=== PATIENT | female | born 1965 | race Two or more races ===

== ENCOUNTER → 2022-07-06 | Outpatient (CLI) | payer OTHER ==
[2022-07-06 08:07] LABS: Basophils # (auto) 0 10 ^3/uL (0-0.2); Eosinophils # (auto) 0.2 10 ^3/uL (0-0.8); Eosinophils % (auto) 3.8 % (0.0-7.0); Lymphocytes # (auto) 2.2 10 ^3/uL (0.4-5.4); Mean Corpuscular Volume 79.3 fL (80.0-100.0); Monocytes # (auto) 0.5 10 ^3/uL (0-1.3); Neutrophils % (auto) 53.4 % (37.0-80.0)
[2022-07-06 08:09] LABS: Basophils % (auto) 0.4 % (0.0-2.0); Hematocrit 40.3 % (36.0-46.0); Hemoglobin 13.4 g/dL (12.2-16.2); Lymphocytes % (auto) 34.8 % (10.0-50.0); Mean Corpuscular Hemoglobin 26.5 pg (28.0-32.0); Mean Corpuscular Hgb Conc. 33.4 g/dL (32.0-36.0); Monocytes % (auto) 7.6 % (0.0-12.0); Neutrophils # (auto) 3.4 10 ^3/uL (1.6-8.6); Nucleated Red Blood Cells % 0.2 %; Red Blood Cells 5.08 10^6/uL (4.0-5.20); Red Cell Distribution Width 15.7 % (11.8-14.3); White Blood Cell 6.3 10^3/uL (4.4-10.8)
[2022-07-06 08:22] LABS: Urine Bacteria NONE SEEN /hpf (None Seen); Urine Blood 1+ /uL (Negative); Urine Specific Gravity 1.004 (1.001-1.035); Urine WBC 1 /hpf (0 - 5)
[2022-07-06 08:39] LABS: Albumin 3.2 g/dL (3.4-5.0); Calcium 9.3 mg/dL (8.5-10.1); Potassium 3.8 mmol/L (3.5-5.1)
[2022-07-06 08:43] LABS: BUN/Creatinine Ratio 23.5 (10.0-20.0); Bilirubin, Total 0.5 mg/dL (0.2-1.0); Total Protein 8.2 g/dL (6.4-8.2)
== END | disposition home or self-care (01) ==
LOC: LAB 07:52
PROVIDERS: ATTEND Student in an Organized Health Care Education/Training Program
DX: I10 Essential (primary) hypertension (principal); E55.9 Vitamin D deficiency, unspecified; R73.9 Hyperglycemia, unspecified
CPT/HCPCS: 36415; 80053; 80061; 81001; 82306; 83036; 84443; 85025

== ENCOUNTER → 2024-02-23 | Outpatient (CLI) | payer OTHER ==
[2024-02-23 07:59] LABS: Urine Bacteria None Seen /hpf (None Seen)
[2024-02-23 08:12] LABS: Basophils # (auto) 0 10 ^3/uL (0-0.2); Basophils % (auto) 0.5 % (0.0-2.0); Eosinophils # (auto) 0.2 10 ^3/uL (0-0.8); Eosinophils % (auto) 3.4 % (0.0-7.0); Hematocrit 40.5 % (36.0-46.0); Hemoglobin 13.2 g/dL (12.2-16.2); Lymphocytes # (auto) 2.2 10 ^3/uL (0.4-5.4); Lymphocytes % (auto) 36.4 % (10.0-50.0); Mean Corpuscular Hemoglobin 26.2 pg (28.0-32.0); Mean Corpuscular Hgb Conc. 32.6 g/dL (32.0-36.0); Mean Corpuscular Volume 80.6 fL (80.0-100.0); Monocytes # (auto) 0.5 10 ^3/uL (0-1.3); Neutrophils # (auto) 3.1 10 ^3/uL (1.6-8.6); Neutrophils % (auto) 51.7 % (37.0-80.0); Nucleated Red Blood Cells % 0.1 %; Platelet Count (auto) 279 10^3/uL (140-450); Red Blood Cells 5.02 10^6/uL (4.0-5.20); Red Cell Distribution Width 15.1 % (11.8-14.3)
[2024-02-23 08:26] LABS: Urine Blood 1+ /uL (Negative); Urine Clarity Clear (Clear); Urine Color Colorless (Yellow); Urine Protein, UAD Negative (Negative); Urine Specific Gravity 1.003 (1.001-1.035); Urine Urobilinogen Normal (Negative); Urine WBC 1 /hpf (0 - 5); Urine pH 5.5 (5.0-9.0)
[2024-02-23 08:47] LABS: Alanine Aminotransferase 11 U/L (7-40); Albumin 4.4 g/dL (3.2-4.8); Anion Gap 9 (5-15); Aspartate Aminotransferase 15 U/L (13-40); BUN/Creatinine Ratio 18.1 (10.0-20.0); Blood Urea Nitrogen 13 mg/dL (9-23); Calcium 9.7 mg/dL (8.7-10.4); Carbon Dioxide 25 mmol/L (20-31); Cholesterol 146 mg/dL (< 200); Glucose 100 mg/dL (74-106); HDL Cholesterol 46 mg/dL (40-59); LDL Cholesterol 94 mg/dL (< 100); Potassium 3.7 mmol/L (3.5-5.1); Sodium 141 mmol/L (136-145); Triglycerides 62 mg/dL (< 150)
[2024-02-23 08:48] LABS: Bilirubin, Total 0.7 mg/dL (0.2-1.0); Total Protein 7.8 g/dL (5.7-8.2)
[2024-02-23 08:56] LABS: Alkaline Phosphatase 120 U/L (46-116); Chloride 107 mmol/L (98-107)
== END | disposition home or self-care (01) ==
LOC: LAB 07:47
PROVIDERS: ATTEND Student in an Organized Health Care Education/Training Program
DX: R73.9 Hyperglycemia, unspecified (principal); R03.0 Elevated blood-pressure reading, without diagnosis of hypertension
CPT/HCPCS: 36415; 80053; 80061; 81001; 83036; 84443; 85025

== ENCOUNTER 2024-08-29 07:42 | Outpatient (CLI) | payer OTHER ==
[2024-08-29 07:58] LABS: Urine Bacteria None Seen /hpf (None Seen)
[2024-08-29 08:09] LABS: Basophils # (auto) 0 10 ^3/uL (0-0.2); Basophils % (auto) 0.3 % (0.0-2.0); Eosinophils # (auto) 0.2 10 ^3/uL (0-0.8); Eosinophils % (auto) 3.6 % (0.0-7.0); Hematocrit 41.1 % (36.0-46.0); Hemoglobin 13.5 g/dL (12.2-16.2); Lymphocytes # (auto) 2.1 10 ^3/uL (0.4-5.4); Mean Corpuscular Hemoglobin 26.3 pg (28.0-32.0); Mean Corpuscular Hgb Conc. 32.9 g/dL (32.0-36.0); Monocytes # (auto) 0.4 10 ^3/uL (0-1.3); Monocytes % (auto) 6.5 % (0.0-12.0); Neutrophils # (auto) 2.8 10 ^3/uL (1.6-8.6); Neutrophils % (auto) 51.6 % (37.0-80.0); Platelet Count (auto) 272 10^3/uL (140-450); Red Blood Cells 5.14 10^6/uL (4.0-5.20); White Blood Cell 5.4 10^3/uL (4.4-10.8)
[2024-08-29 08:26] LABS: Urine Blood 1+ /uL (Negative); Urine Clarity Clear (Clear); Urine Color Colorless (Yellow); Urine Protein, UAD Negative (Negative); Urine Specific Gravity 1.008 (1.001-1.035); Urine Squamous Epithelial Cell FEW /hpf (<5); Urine Urobilinogen Normal (Negative); Urine WBC 3 /HPF (0-5); Urine pH 5.5 (5.0-9.0)
[2024-08-29 11:25] LABS: Anion Gap 11 (5-15); Blood Urea Nitrogen 13 mg/dL (9-23); Calcium 9.2 mg/dL (8.7-10.4); Carbon Dioxide 23 mmol/L (20-31); Chloride 106 mmol/L (98-107); Glucose 99 mg/dL (74-106); Potassium 3.8 mmol/L (3.5-5.1); Sodium 140 mmol/L (136-145); Total Protein 7.7 g/dL (5.7-8.2)
[2024-08-29 11:26] LABS: Albumin 4.4 g/dL (3.2-4.8); Aspartate Aminotransferase 15 U/L (0-34)
[2024-08-29 11:27] LABS: Bilirubin, Total 0.6 mg/dL (0.2-1.0)
[2024-08-29 11:33] LABS: Alanine Aminotransferase < 9 U/L (7-40); Alkaline Phosphatase 116 U/L (46-116)
[2024-08-29 15:51] LABS: Triglycerides 74 mg/dL (< 150)
[2024-08-29 15:52] LABS: Cholesterol 145 mg/dL (< 200); LDL Cholesterol 96 mg/dL (< 100)
[2024-08-29 15:53] LABS: HDL Cholesterol 47 mg/dL (40-59)
== END 2024-08-29 17:00 | disposition home or self-care (01) ==
LOC: LAB 07:42
PROVIDERS: ATTEND Student in an Organized Health Care Education/Training Program
DX: E55.9 Vitamin D deficiency, unspecified (principal); R73.9 Hyperglycemia, unspecified; Z12.11 Encounter for screening for malignant neoplasm of colon; R03.0 Elevated blood-pressure reading, without diagnosis of hypertension
CPT/HCPCS: 36415; 80053; 80061; 81001; 82274; 82306; 83036; 84443; 85025

== ENCOUNTER 2025-03-17 07:41 | Outpatient (CLI) | payer OTHER ==
[2025-03-17 08:07] LABS: Hemoglobin 13.4 g/dL (12.2-16.2)
[2025-03-17 08:09] LABS: Hematocrit 40.0 % (36.0-46.0); Mean Corpuscular Hemoglobin 26.7 pg (28.0-32.0); Mean Corpuscular Volume 79.5 fL (80.0-100.0); Nucleated Red Blood Cells % 0.0 %
[2025-03-17 08:11] LABS: Urine Protein, UAD Negative (Negative)
[2025-03-17 08:31] LABS: Alanine Aminotransferase 11 U/L (7-40); Albumin 4.4 g/dL (3.2-4.8); Anion Gap 10 (5-15); BUN/Creatinine Ratio 17.6 (10.0-20.0); Bilirubin, Total 0.6 mg/dL (0.2-1.0); Blood Urea Nitrogen 12 mg/dL (9-23); Calcium 9.4 mg/dL (8.7-10.4); Carbon Dioxide 24 mmol/L (20-31); Chloride 106 mmol/L (98-107); Cholesterol 151 mg/dL (< 200); Glucose 99 mg/dL (74-106); HDL Cholesterol 42 mg/dL (40-59); Potassium 4.0 mmol/L (3.5-5.1); Sodium 140 mmol/L (136-145); Total Protein 7.9 g/dL (5.7-8.2); Triglycerides 85 mg/dL (< 150)
[2025-03-17 08:36] LABS: Alkaline Phosphatase 119 U/L (46-116)
== END 2025-03-17 17:00 | disposition home or self-care (01) ==
LOC: LAB 07:41
PROVIDERS: ATTEND Student in an Organized Health Care Education/Training Program
DX: I10 Essential (primary) hypertension (principal); N39.0 Urinary tract infection, site not specified; R73.03 Prediabetes; Z00.01 Encounter for general adult medical examination with abnormal findings; Z68.32 Body mass index [BMI] 32.0-32.9, adult
CPT/HCPCS: 36415; 80053; 80061; 81001; 82043; 83036; 84443; 85025